=== PATIENT | female | born 1945 | race Caucasian/White ===

== ENCOUNTER 2020-11-10 14:16 | Emergency (ER) | payer OTHER ==
[~2020-11-10] VITALS: Ht 167.6 cm; Wt 88.5 kg
[2020-11-10] MEDS ORDERED: GLUMETZA500 MG PO (14:25)
[2020-11-10] MEDS ORDERED: LIPITOR40 M1 PO (14:25)
== END 2020-11-10 19:10 | disposition home or self-care (01) ==
LOC: ER 14:16
DX: U07.1 COVID-19 (principal)

== ENCOUNTER → 2020-11-11 | Outpatient (CLI) | payer OTHER ==
[~2020-11-11] MED LIST: GLUMETZA500 MG PO; LIPITOR40 M1 PO
== END | disposition home or self-care (01) ==
LOC: ASH CLINIC 12:58
DX: Z23 Encounter for immunization (principal); U07.1 COVID-19